=== PATIENT | female | born 1985 | race Caucasian/White ===

== ENCOUNTER 2024-11-19 19:57 | Emergency (ER) | payer OTHER ==
[2024-11-19] MEDS: Acetaminophen 500 MG Tab PO ONE (20:59)
[2024-11-19 21:21] LABS: BASOPHILS ABSOLUTE AUTO 0.08 K/uL (0.00-0.10); BASOPHILS PERCENT AUTO 0.4 % (0.1-1.3); EOSINOPHILS ABSOLUTE AUTO 0.21 K/uL (0.00-0.40); EOSINOPHILS PERCENT AUTO 0.9 % (0.0-5.4); HEMATOCRIT 41.1 % (34.3-46.0); HEMOGLOBIN 13.2 g/dL (11.2-15.5); IMMATURE GRAN ABSOLUTE AUTO 0.13 K/uL (0.00-0.23); IMMATURE GRAN PERCENT AUTO 0.6 % (0.0-0.7); LYMPHOCYTES ABSOLUTE AUTO 1.92 K/uL (0.8-3.3); LYMPHOCYTES PERCENT AUTO 8.5 % (11.4-47.7); MEAN CORPUSCULAR HGB CONC 32.1 g/dL (31.6-35.5); MEAN CORPUSCULAR VOLUME 90.3 fL (81.4-99.0); MONOCYTES ABSOLUTE AUTO 1.67 K/uL (0.20-0.90); MONOCYTES PERCENT AUTO 7.4 % (3.3-12.6); NEUTROPHILS ABSOLUTE AUTO 18.63 K/uL (1.0-7.6); NEUTROPHILS PERCENT AUTO 82.2 % (40.0-78.1); PLATELET COUNT,PLT 266 K/uL (130-375); RED BLOOD CELL COUNT 4.55 M/uL (3.77-5.24); WHITE BLOOD CELL COUNT,WBC 22.6 K/uL (3.2-11.0)
[2024-11-19] MEDS: Ondansetron 4 MG/2 ML SDV IVPUSH ONE (21:24)
[2024-11-19] MEDS: Sodium Chloride 0.9% 1,000 ML IV SCH (21:24)
[2024-11-19] MEDS: Lidocaine 2% Viscous Solution 15 ML UD PO ONE (21:24)
[2024-11-19 21:44] LABS: A/G RATIO 0.7 (1.2-2.2); ALANINE AMINOTRANSFERASE,ALT 25 U/L (12-78); ALKALINE PHOSPHATASE 96 U/L (46-116); ASPARTATE AMNIOTRANSFERASE,AST 16 U/L (15-37); BILIRUBIN TOTAL 0.3 mg/dL (0.2-1.0); BLOOD UREA NITROGEN,BUN 10 mg/dL (7-18); CALCIUM 8.8 mg/dL (8.5-10.1); CARBON DIOXIDE,CO2 24 mmol/L (21-32); CHLORIDE,CL 104 mmol/L (100-108); CREATININE 0.8 mg/dL (0.6-1.0); EST CRCL DRUG DOSING (CG) 92.72 mL/min; ESTIMATED GFR 97 mL/min (>60); GLUCOSE RANDOM 134 mg/dL (74-106); POTASSIUM,K 3.3 mmol/L (3.6-5.2); PROTEIN TOTAL,TP 7.1 g/dL (6.4-8.2); SODIUM,NA 139 mmol/L (140-148)
[2024-11-19 21:47] LABS: LACTIC ACID 1.3 mmol/L (0.4-2.0)
[2024-11-19 21:48] LABS: ANION GAP 14.3 mmol/L (5.0-14.0)
[2024-11-19] MEDS: Ketorolac 15 MG/ML SDV IVPUSH ONE (22:17)
== END 2024-11-19 22:30 | disposition home or self-care (01) ==
LOC: JP.ED 19:57
DX: J02.0 Streptococcal pharyngitis (principal); Z88.2 Allergy status to sulfonamides; Z88.0 Allergy status to penicillin
CPT/HCPCS: 36415; 80053; 83605; 85025; 87651; 96361; 96374; 96375; 99284; A9270; J1885; J2405; J7030